=== PATIENT | female | born 1950 | race Two or more races ===

== ENCOUNTER 2020-12-19 06:55 | Day surgery (SDC) | payer OTHER ==
[~2020-12-19 06:55] MED LIST: CALTRATE 600+D1 EAC1 PO; SYNTHROID75 MCG PO; TOPROL XL50 M1 PO; VALSAR PO; ZOLOFT50 MG PO
[2020-12-19] MEDS ORDERED: MACROBID 100 M100 MG PO (12:53)
[2020-12-19] MEDS ORDERED: ULTRACET PO (12:53)
== END 2020-12-19 17:50 | disposition home or self-care (01) ==
LOC: CIR.AMB 06:55
PROVIDERS: ATTEND Obstetrics & Gynecology Gynecology
DX: N81.11 Cystocele, midline (principal); N81.5 Vaginal enterocele; Z20.822 Contact with and (suspected) exposure to COVID-19